=== PATIENT | male | born 2000 | race Caucasian/White ===

== ENCOUNTER 2025-01-21 11:04 | Emergency (ER) | payer OTHER ==
--- NOTE | 2025-01-21 12:05 | RAD REPORT ---
EXAM: Chest Single View HISTORY: 24 years Male Chest pain;Palpitations COMPARISON: 11/16/2012 FINDINGS: LUNGS/PLEURA: The lungs are clear. No pleural effusions or pneumothorax. No pulmonary edema. CARDIAC/MEDIASTINUM: The cardiac silhouette is within normal limits. UPPER ABDOMEN: No significant abnormality. BONES: No acute abnormality. LINES/TUBES/OTHER: N/A IMPRESSION: No evidence of acute cardiopulmonary disease.
--- NOTE | 2025-01-21 12:06 | RAD REPORT ---
EXAMINATION: Head Brain Wo Cont CLINICAL INDICATION: Male, 24 years old.DIZZINESS TECHNIQUE: Axial CT images from the skull base to the vertex without intravenous contrast. Coronal an d sagittal reformatted images were created from the data set. One or more of the following dose reduction techniques were used: Automated exposure control, adjustment of the mA and/or kV according to patient size, and/or iterative reconstruction. Unless otherwise specified, incidental findings do not require dedicated imaging follow-up. [id number]. COMPARISON: No prior exam. FINDINGS: INTRACRANIAL: No acute intracranial hemorrhage. No hydrocephalus. No mass effect or midline shift. No significant white matter disease. VASCULATURE: No visualized abnormalities in the arteries or dural venous sinuses. SCALP/SKULL: No calvarial fracture identified. No acute soft tissue abnormality. SINUSES: The visualized paranasal sinuses are mostly clear. No significant mastoid fluid. IMPRESSION: No acute intracranial abnormality.
[2025-01-21] MEDS ORDERED: NA CHLORIDE 0.9% 1,000 ML ONE (12:32)
[2025-01-21 12:42] LABS: Absolute Basophils 0.1 K/uL (0-0.5); Absolute Lymphocytes (CBC) 2.5 K/uL (0.7-4.9); Absolute Monocytes 0.7 K/uL (0.1-1.3); Basophils % 0.6 % (0-1.3); Eosinophils % 0.5 % (0-4.4); Hematocrit 45.4 % (39.6-49.0); Hemoglobin 16.1 g/dL (13.6-17.9); Lymphocytes % 30.1 % (15.3-44.8); MCH 30.8 pg (27.0-35.0); MCHC 35.4 g/dL (32.0-36.0); MCV 87.1 fL (80-100); MPV 8.6 fL (7.6-11.3); Neutrophils % 60.8 % (41.7-73.7); Platelets 302 thou/uL (152-406); RBC Red Blood Cell Count 5.21 M/uL (4.33-5.43)
[2025-01-21 12:56] LABS: Anion Gap 8.8 mEq/L (5.0-15.0); Potassium 3.8 mEq/L (3.5-5.1); Troponin High Sensitivity 3.4 pg/mL (<58.9)
--- NOTE | 2025-01-21 13:12 | EDPHYS ---
Physician Documentation [facility] Name: Chrissie Lino Age: 24 yrs Sex: Male : 2000 Arrival Date: 01/21/2025 Time: 11:04 Bed 9 Private MD: ED Physician Cesario Mann HPI: 01/21 11:55 This 24 yrs old Male presents to ER via Ambulatory with complaints of Chest Pain, rn Shortness Of Breath. 11:55 The patient or guardian reports chest pain that is located primarily in the chest rn diffusely. The pain does not radiate. The chest pain is described as aching. Modifying factors: The symptoms are alleviated by nothing. the symptoms are aggravated by nothing. 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 Patient reports has had several episodes while in the [employer] and told to stay away from stimulants. Patient had a Monster energy drink this morning. Patient also reports has been under a lot of stress lately. While sitting here he feels much better and almost resolved.. Historical: - Allergies: 11:47 Vyvanse; iw - Home Meds: 11:47 None [Active]; iw - PMHx: 11:47 Depressive disorder; Anxiety; tinnitus; concussions; iw - PSHx: 11:47 None; iw - Immunization history:: Adult Immunizations not up to date. - Infectious Disease History:: Denies. - Social history:: Smoking status: Reported history of juuling and/or vaping. - Family history:: not pertinent. - Hospitalizations: : No recent hospitalization is reported. ROS: 11:55 Constitutional: Negative for fever, chills, and weight loss, Cardiovascular: Negative rn for palpitations, and edema, Respiratory: Negative for wheezing, and pleuritic chest pain, Abdomen/GI: Negative for abdominal pain, nausea, vomiting, diarrhea, and constipation, MS/Extremity: Negative for injury and deformity, Skin: Negative for injury, rash, and discoloration, Neuro: Negative for headache, weakness, numbness, tingling, and seizure, Exam: 11:55 Constitutional: This is a well developed, well nourished patient who is awake, alert, rn and in no acute distress. Ambulatory to room without difficulty or assistance. Appears anxious Cardiovascular: Regular rate and rhythm. No pulse deficits. Respiratory: Speaking full sentences, unlabored. No increased work of breathing, no retractions or nasal flaring. Abdomen/GI: Soft, non-tender MS/ Extremity: Pulses equal, no cyanosis. Neuro: Awake and alert, GCS 15, oriented to person, place, time, and situation. Cranial nerves II-XII grossly intact. Motor strength 5/5 in all extremities. Sensory grossly intact. Cerebellar exam normal. Normal gait. 13:12 ECG was reviewed by the Attending Physician. rn Vital Signs: 11:46 BP 123 / 89; Pulse 79; Resp 16; Temp 98.1; Pulse Ox 98% on R/A; Weight 58.97 kg; Height iw 5 ft. 8 in. ; 12:46 BP 107 / 73; Pulse 68; Resp 18; Pulse Ox 100% on R/A; kj2 13:20 BP 114 / 80; Pulse 63; Resp 16; Pulse Ox 100% on R/A; iw 11:46 Body Mass Index 19.77 (58.97 kg, 172.72 cm) iw MDM: 11:17 Medical Screening Exam initiated rn 13:09 Differential diagnosis: acute myocardial infarction, acute pericarditis, chest wall rn pain, costochondritis, esophagitis, gastritis, pleurisy, pneumonia, pneumothorax, pulmonary embolus. HEART Score: History: Slightly Suspicious (0), ECG: Normal (0), Age: < or = 45 years (0), Risk Factors: No Risk Factors Known (0), Troponin: < or = 1 x Normal Limit (0), Total Score = 0. Data reviewed: vital signs, nurses notes, lab test result(s), EKG, radiologic studies, plain films, and as a result, I will discharge patient. Counseling: I had a detailed discussion with the patient and/or guardian regarding the historical points, exam findings, and any diagnostic results supporting the discharge/admit diagnosis, lab results, radiology results, the need for outpatient follow up, to return to the emergency department if symptoms worsen or persist or if there are any questions or concerns that arise at home. Response to treatment: the patient's symptoms have resolved after treatment, the patient's condition has returned to base line, the patient is now symptom free, and as a result, I will discharge patient. Special discussion: Based on the patient's history, exam, and Dx evaluation, there is no indication for emergent intervention or inpatient Tx. It is understood by the patient/guardian that if the Sx's persist or worsen they need to return immediately for re-evaluation. I discussed with the patient/guardian in detail that at this point there is no indication for admission to the hospital. It is understood, however, that if the symptoms persist or worsen the patient needs to return immediately for re-evaluation. ED course: No acute findings and workup today. Chest x-ray images negative for pneumothorax or pneumonia per my interpretation. Patient completely back to baseline without intervention. Troponin negative. D-dimer negative. No ischemia on ECG. No signs of infection. Most likely stress reaction. Will discharge home with return precautions. I have personally reviewed all of the results, including but not limited to blood tests and imaging deemed necessary to safely discharge this patient at this time. All results given to and printed out for patient. I personally went over all the results with the patient and answered all questions. Patient will follow-up with PCP and or specialist as discussed. Return precautions given and understood.. 01/21 11:43 Order name: Basic Metabolic Panel; Complete Time: 12:59 iw 01/21 11:43 Order name: CBC with Diff; Complete Time: 12:59 iw 01/21 11:43 Order name: D-Dimer; Complete Time: 12:59 iw 01/21 11:43 Order name: NT PRO-BNP; Complete Time: 12:59 iw 01/21 11:43 Order name: Troponin HS; Complete Time: 12:59 iw 01/21 11:43 Order name: XRAY Chest (1 view); Complete Time: 12:59 iw 01/21 11:46 Order name: CT Head Brain wo Cont; Complete Time: 12:59 rn 01/21 11:43 Order name: Cardiac monitoring iw 01/21 11:43 Order name: EKG - Nurse/Tech; Complete Time: 12:19 iw 01/21 11:43 Order name: IV Saline Lock; Complete Time: 12:30 iw 01/21 11:43 Order name: Labs collected and sent; Complete Time: 12:30 iw 01/21 11:43 Order name: O2 Per Protocol; Complete Time: 12:19 iw 01/21 11:43 Order name: O2 Sat Monitoring; Complete Time: 12:19 iw EC:12 Rate is 80 beats/min. Rhythm is regular. QRS [place] is Normal. MA interval is normal. QRS rn interval is normal. QT interval is normal. T waves are Normal. No ST changes noted. Clinical impression: NSR w/ Non-specific ST/T Changes. Interpreted by me. Reviewed by me. Administered Medications: 12:42 Drug: NS 0.9% IV 1000 ml IV at 1000 ml once; to be given as a bolus over 60 minutes kj2 Route: IV; Rate: 1000 ml; Site: left antecubital; 13:21 Follow up: IV Status: Completed infusion iw Disposition Summary: 01/21/25 13:11 Discharge Ordered Notes: Location: Home rn Problem: new rn Symptoms: have improved rn Condition: Stable rn Diagnosis - Chest pain, unspecified rn Followup: rn - With: Private Physician - When: As needed - Reason: Recheck today's complaints, Re-evaluation by your physician Discharge Instructions: - Discharge Summary Sheet rn - Nonspecific Chest Pain, Adult rn - Pain Without a Known Cause rn Forms: - Medication Reconciliation Form rn - Antibiotic rn gastroenterology - Prescription Opioid Use rn - Patient Portal Instructions rn - Leadership Thank You Letter rn - Work release form jl7 Signatures: Dispatcher [employer] Ashley Rosas RN RN iw Cesario Mann MD MD rn Jordan, Krystal, RN RN kj2 Corrections: (The following items were deleted from the chart) 11:43 11:43 BASIC METABOLIC PANEL+C.LAB.BRZ ordered. EDMS EDMS 11:43 11:43 CBC+H.LAB.BRZ ordered. EDMS EDMS 11:43 11:43 D-DIMER+COAG.LAB.BRZ ordered. EDMS EDMS 11:43 11:43 PROBNP+C.LAB.BRZ ordered. EDMS EDMS 11:43 11:43 Troponin High Sensitivity+C.LAB.BRZ ordered. EDMS EDMS 11:44 11:44 Chest Single View+RAD.RAD.BRZ ordered. EDMS EDMS
--- NOTE | 2025-01-21 13:12 | ER ---
Nurse's Notes [facility] Name: Chrissie Lino Age: 24 yrs Sex: Male : 2000 Arrival Date: 01/21/2025 Time: 11:04 Bed 9 Private MD: Diagnosis: Chest pain, unspecified Presentation: 01/21 11:46 Chief complaint: Patient states: had an episode of rapid heavy breathing and felt like iw he was going to pass out. Coronavirus screen: At this time, the client does not indicate any symptoms associated with coronavirus-19. Ebola Screen: No symptoms or risks identified at this time. Initial Sepsis Screen: Does the patient meet any 2 criteria? No. Patient's initial sepsis screen is negative. Does the patient have a suspected source of infection? No. Patient's initial sepsis screen is negative. Risk Assessment: Do you want to hurt yourself or someone else? Patient reports no desire to harm self or others. Onset of symptoms was January 21, 2025. 11:46 Method Of Arrival: Ambulatory iw 11:46 Acuity: VAISHALI 3 iw Historical: - Allergies: 11:47 Vyvanse; iw - Home Meds: 11:47 None [Active]; iw - PMHx: 11:47 Depressive disorder; Anxiety; tinnitus; concussions; iw - PSHx: 11:47 None; iw - Immunization history:: Adult Immunizations not up to date. - Infectious Disease History:: Denies. - Social history:: Smoking status: Reported history of juuling and/or vaping. - Family history:: not pertinent. - Hospitalizations: : No recent hospitalization is reported. Screenin:45 [facility] ED Fall Risk Assessment (Adult) History of falling in the last 3 months, kj2 including since admission No falls in past 3 months (0 pts) Confusion or Disorientation No (0 pts) Intoxicated or Sedated No (0 pts) Impaired Gait No (0 pts) Mobility Assist Device Used No (0 pt) Altered Elimination No (0 pt) Score/Fall Risk Level 0 - 2 = Low Risk Maintained a safe environment, Hourly rounding (assess needs \T\ fall precautionary measures) done. Abuse screen: Denies threats or abuse. Denies injuries from another. Nutritional screening: No deficits noted. Tuberculosis screening: No symptoms or risk factors identified. Assessment: 12:20 General: Appears in no apparent distress. Behavior is calm, cooperative. Pain: kj2 Complains of pain in chest Pain does not radiate. Pain began gradually. Cardiovascular: Patient's skin is warm and dry. Respiratory: Airway is patent Respiratory effort is even, unlabored. GI: No signs and/or symptoms were reported involving the gastrointestinal system. : No signs and/or symptoms were reported regarding the genitourinary system. 12:47 Reassessment: Patient appears in no apparent distress at this time. Patient and/or kj2 family updated on plan of care and expected duration. Pain level reassessed. Patient is alert, oriented x 3, equal unlabored respirations, skin warm/dry/pink. 13:20 Reassessment: Patient appears in no apparent distress at this time. Patient and/or iw family updated on plan of care and expected duration. Pain level reassessed. Patient is alert, oriented x 3, equal unlabored respirations, skin warm/dry/pink. Patient states feeling better. Patient states symptoms have improved. Vital Signs: 11:46 BP 123 / 89; Pulse 79; Resp 16; Temp 98.1; Pulse Ox 98% on R/A; Weight 58.97 kg; Height iw 5 ft. 8 in. ; 12:46 BP 107 / 73; Pulse 68; Resp 18; Pulse Ox 100% on R/A; kj2 13:20 BP 114 / 80; Pulse 63; Resp 16; Pulse Ox 100% on R/A; iw 11:46 Body Mass Index 19.77 (58.97 kg, 172.72 cm) iw ED Course: 11:06 Patient arrived in ED. im 11:17 Cesario Mann MD is Attending Physician. rn 11:47 Triage completed. iw 11:48 Arm band placed on. iw 11:57 CT Head Brain wo Cont In Process Unspecified. EDMS 12:01 XRAY Chest (1 view) In Process Unspecified. EDMS 12:20 Patient has correct armband on for positive identification. Provided Education on: call kj2 light. 12:30 Initial lab(s) drawn, by me, sent to lab. Inserted saline lock: 20 gauge in left jl7 antecubital area, using aseptic technique. Blood collected. Flushed with 10 mL NS. Patient maintains SpO2 saturation greater than 95% on room air. 12:34 Iris Tian, RN is Primary Nurse. kj2 13:21 Client placed on continuous cardiac and pulse oximetry monitoring. NIBP monitoring iw applied. 13:21 No provider procedures requiring assistance completed. IV discontinued, intact, iw bleeding controlled, No redness/swelling at site. Pressure dressing applied. Administered Medications: 12:42 Drug: NS 0.9% IV 1000 ml IV at 1000 ml once; to be given as a bolus over 60 minutes kj2 Route: IV; Rate: 1000 ml; Site: left antecubital; 13:21 Follow up: IV Status: Completed infusion iw Medication: 12:46 VIS not applicable for this client. kj2 Outcome: 13:11 Discharge ordered by . rn 13:21 Discharged to home ambulatory, iw 13:21 Condition: good 13:21 Discharge instructions given to patient, Instructed on discharge instructions, follow up and referral plans. Demonstrated understanding of instructions, follow-up care, 13:21 Patient left the ED. iw Signatures: Dispatcher [employer] EDMS Ashley Deras RN RN iw Cesario Mann MD MD rn Leal, Jahala, RN RN jl7 Diane Barrett Krystal, RN RN kj2
[2025-01-21 15:46] VITALS: BP 114/80; TEMP 98.1; O2SAT 100
--- NOTE | 2025-01-24 12:07 | EKG ---
Test Date: 2025-01-21 Test Time: 11:45:06 [employer] Architect: ROB MEASUREMENT RESULTS: Intervals: Rate: 80 [place]: 126 QRSD: 86 QT: 362 QTc: 417 [place]: P: 73 [place]: 126 QRS: -71 T: 48 INTERPRETIVE STATEMENTS: Normal sinus rhythm with sinus arrhythmia Left axis deviation Abnormal ECG No previous ECG available for comparison Electronically Signed On 01-24-25 12:05:21 CDT by Kimani Carney
== END 2025-01-21 13:21 | disposition home or self-care (01) ==
LOC: ER 11:04
DX: R07.9 Chest pain, unspecified (principal); R06.02 Shortness of breath; F41.9 Anxiety disorder, unspecified
CPT/HCPCS: 85025; 80048; 36415; 85379; 84484; 83880; 70450; 71045; 96360; 99284; J7030; 93005